=== PATIENT | female | born 1970 | race Caucasian/White ===

== ENCOUNTER 2016-05-30 22:32 | Emergency (ER) | payer OTHER ==
[~2016-05-30] VITALS: Ht 152.4 cm; Wt 75.0 kg
[~2016-05-30 22:32] MED LIST: BENHCT2012 PO; HYD25 PO; OLME1TAB25 PO
[2016-05-30 22:40] VITALS: Ht 152.4 cm; Wt 75.0 kg
[2016-05-30] MEDS ORDERED: hydrALAzine 20 MG INJ IV ONE (23:30)
[2016-05-31] LABS: ADD SCAN DIFF NO
--- NOTE | 2016-05-31 00:05 | RADRPT ---
PROCEDURE: XR Chest. CLINICAL INDICATION: Chest pain. TECHNIQUE: Portable AP upright view of the chest was obtained. COMPARISON: 02/01/2016 FINDINGS: The cardiomediastinal silhouette is within normal limits. The lungs are clear. There is no evidenc e for pleural effusion, pneumothorax or pulmonary vascular congestion. The osseous structures are i ntact with no evidence for acute abnormality. RPTAT:HJJR IMPRESSION: No evidence for acute intrathoracic pathology. Physician Lico Date Time Electronically viewed and signed by Mao Ballard Physician on 05/31/2016 00:05 JR/
[2016-05-31 00:15] LABS: ALBUMIN 4.4 g/dl (3.3-4.9); CHLORIDE 99 mmol/L (97-110); INR 0.87; POTASSIUM 3.7 mmol/L (3.5-5.1); PROTIME 11.8 Sec (12.2-14.2); PT RATIO 0.9; SODIUM 136 mmol/L (135-144)
[2016-05-31 00:18] LABS: ALANINE AMINOTRANSFERASE 33 IU/L (13-69); ALBUMIN/GLOBULIN RATIO 1.25; ALKALINE PHOSPHATASE 69 IU/L (42-121); ANION GAP 13 (8-16); ASPARTATE AMINO TRANSFERASE 26 IU/L (15-46); BASOPHIL # 0.1 10^3/ul (0.0-0.1); BASOPHILS % 0.9 % (0.0-2.0); BILIRUBIN,INDIRECT 0.2 mg/dl (0-1.1); BILIRUBIN,TOTAL 0.2 mg/dl (0.2-1.3); BLOOD UREA NITROGEN 16 mg/dl (7-20); CALCIUM 9.5 mg/dl (8.4-10.2); CARBON DIOXIDE 28 mmol/L (21-31); CREATININE 0.83 mg/dl (0.44-1.00); EOSINOPHILS # 0.3 10^3/ul (0.0-0.5); EOSINOPHILS % 2.9 % (0.0-7.0); GLUCOSE 93 mg/dl (70-220); HEMATOCRIT 39.9 % (37.0-47.0); LYMPHOCYTES # 3.6 10^3/ul (0.8-2.9); LYMPHOCYTES % 33.4 % (15.0-51.0); MEAN CORPUSCULAR HEMOGLOBIN 27.4 pg (29.0-33.0); MEAN CORPUSCULAR HGB CONC 32.6 g/dl (32.0-37.0); MEAN PLATELET VOLUME 11.6 fl (7.4-10.4); MONOCYTE # 0.9 10^3/ul (0.3-0.9); MONOCYTES % 8.7 % (0.0-11.0); NEUTROPHIL # 5.8 10^3/ul (1.6-7.5); NEUTROPHILS % 53.6 % (39.0-77.0); PLATELET COUNT 268 10^3/UL (140-415); RED BLOOD COUNT 4.75 10^6/ul (4.20-5.40); RED CELL DISTRIBUTION WIDTH 13.3 % (11.5-14.5); TOTAL PROTEIN 7.9 g/dl (6.1-8.1); WHITE BLOOD COUNT 10.7 10^3/ul (4.8-10.8)
[2016-05-31 00:26] LABS: B-TYPE NATRIURETIC PEPTIDE 80 PG/ML (0-125)
[2016-05-31 00:29] LABS: TROPONIN-I < 0.012 ng/ml (0.00-0.12)
--- NOTE | 2016-05-31 01:01 | ERD ---
ER Documentation Chief Complaint Date/Time DATE: 05/31/16 TIME: 01:00 Chief Complaint CP today that radiates to her back HPI This is a 45-year-old female who comes in with points of chest pain today that radiates to her back. Blood pressure was severely elevated. Denies any nausea denies vomiting denies any fevers or chills. Pain is mild to moderate in intensity and radiates to her left arm. Patient was seen in clinic today and noted to have a severely elevated blood pressure and sent to the ER for further evaluation and management. Patient states she has been under a lot of stress lately secondary to job-related issues. Says she has been feeling very " panicky " ROS All systems reviewed and are negative except as per history of present illness. Medications Home Meds Active Scripts Lorazepam* (Lorazepam*) 1 Mg Tablet, 1 MG PO Q8H Y for ANXIETY, #14 TAB Prov:OSWALD WALLACE 05/31/16 Hydrochlorothiazide* (Hydrochlorothiazide*) 25 Mg Tab, 25 MG PO DAILY, #30 TAB Prov:GEOVANY FIGUEROA MD 02/01/16 Olmesartan-Hydrochlorothiazide (Benicar HCT) 40-12.5 Mg Tablet, 1 TAB PO DAILY, #30 TAB 1 Refill Prov:JYOTHI LAWLER MD 01/30/15 Reported Medications Olmesartan-Hydrochlorothiazide (Benicar HCT) 20-12.5 Mg Tablet, 1 TAB PO DAILY, TAB 01/30/15 Allergies Allergies: Coded Allergies: No Known Allergy (Unverified , 01/30/15) PMhx/Soc Anesthesia Reaction: No Hx Neurological Disorder: No Hx Respiratory Disorders: No Hx Cardiac Disorders: Yes (HTN) Hx Psychiatric Problems: No Hx Miscellaneous Medical Probl: Yes (gastritis) Hx Alcohol Use: No Hx Substance Use: No Hx Tobacco Use: No Smoking Status: Never smoker Physical Exam Vitals Vital Signs Date Time Temp Pulse Resp B/P Pulse Ox O2 Delivery O2 Flow Rate FiO2 05/31/16 01:15 94 12 165/105 98 05/31/16 00:45 99 15 144/96 98 05/31/16 00:15 87 20 168/99 99 05/30/16 23:58 70 19 197/134 100 05/30/16 23:41 71 14 196/109 100 Room Air 05/30/16 22:40 98.6 87 20 223/110 98 Physical Exam Const: [] Head: Atraumatic Eyes: Normal Conjunctiva ENT: Normal External Ears, Nose and Mouth. Neck: Full range of motion..~ No meningismus. Resp: Clear to auscultation bilaterally Cardio: Regular rate and rhythm, no murmurs Abd: Soft, non tender, non distended. Normal bowel sounds Skin: No petechiae or rashes Back: No midline or flank tenderness Ext: No cyanosis, or edema Neur: Awake and alert Psych: Normal Mood and Affect Result Diagram: 05/30/16 2335 05/30/162334 Results 24 hrs Laboratory Tests Test 05/30/16 23:35 White Blood Count 10.710^3/ul Red Blood Count 4.7510^6/ul Hemoglobin 13.0g/dl Hematocrit 39.9% Mean Corpuscular Volume 84.0fl Mean Corpuscular Hemoglobin 27.4pg Mean Corpuscular Hemoglobin Concent 32.6g/dl Red Cell Distribution Width 13.3% Platelet Count 99837^3/UL Mean Platelet Volume 11.6fl Neutrophils % 53.6% Lymphocytes % 33.4% Monocytes % 8.7% Eosinophils % 2.9% Basophils % 0.9% Nucleated Red Blood Cells % 0.0/100WBC Neutrophils # 5.810^3/ul Lymphocytes # 3.610^3/ul Monocytes # 0.910^3/ul Eosinophils # 0.310^3/ul Basophils # 0.110^3/ul Nucleated Red Blood Cells # 0.010^3/ul Prothrombin Time 11.8Sec Prothrombin Time Ratio 0.9 INR International Normalized Ratio 0.87 Activated Partial Thromboplast Time 27.0Sec Sodium Level 136mmol/L Potassium Level 3.7mmol/L Chloride Level 99mmol/L Carbon Dioxide Level 28mmol/L Anion Gap 13 Blood Urea Nitrogen 16mg/dl Creatinine 0.83mg/dl Glucose Level 93mg/dl Calcium Level 9.5mg/dl Total Bilirubin 0.2mg/dl Direct Bilirubin 0.00mg/dl Indirect Bilirubin 0.2mg/dl Aspartate Amino Transf (AST/SGOT) 26IU/L Alanine Aminotransferase (ALT/SGPT) 33IU/L Alkaline Phosphatase 69IU/L Troponin I < 0.012ng/ml B-Type Natriuretic Peptide 80PG/ML Total Protein 7.9g/dl Albumin 4.4g/dl Globulin 3.50g/dl Albumin/Globulin Ratio 1.25 Current Medications Medications (Trade) Dose Ordered Sig/Doris Route PRN Reason Start Time Stop Time Status Last Admin Dose Admin Hydralazine HCl (Apresoline) 20 mg ONCE ONCE IV 05/30/16 23:30 05/30/16 23:31 DC 05/31/16 00:02 Lorazepam (Ativan) 1 mg ONCE ONCE PO 05/31/16 02:00 05/31/16 02:01 Procedures/MDM EKG: Rate/Rhythm: [Normal Sinus Rhythm] QRS, ST, T-waves: [No changes consistent w/ acute ischemia] Impression: [No evidence of ischemia or arrhythmia] Chest X-ray 1V Interpreted by me: Soft Tissue: No acute abnormalities Bones: No acute abnormalities Mediastinum/Cardiac Silhouette/Lungs: [No acute abnormalities] Patient's thoracic symptoms have stabilized while in the department and are stable for outpatient follow up. Exam and work up not consistent w/ ischemia, arrhythmia, PE or dissection. Critical Care: Time: 45 minutes Treatments/Evaluations: Close monitoring and treatment of unstable vital signs, cardiorespiratory, and neurologic status, while maintaining tight balance of fluid, respiratory, and cardiac interventions. Departure Diagnosis: Primary Impression: Chest pain Chest pain type: unspecified Qualified Code: R07.9 - Chest pain, unspecified type Additional Impressions: Hypertension Hypertension type: essential hypertension Qualified Code: I10 - Essential hypertension Anxiety attack Condition: Stable OSWALD WALLACE May 31, 2016 01:01
[2016-05-31 01:15] VITALS: BP 165/105; PULSE 94; RESP 12
[2016-05-31] MEDS ORDERED: LORA1TAB PO (01:40)
[2016-05-31] MEDS ORDERED: LORAZEPAM 1 MG TAB PO ONE (02:00)
== END 2016-05-31 02:25 | disposition home or self-care (01) ==
LOC: E/R 22:32
DX: R07.9 Chest pain, unspecified (principal); I10 Essential (primary) hypertension; F41.9 Anxiety disorder, unspecified; R06.00 Dyspnea, unspecified
CPT/HCPCS: 36415; 71010; 80053; 83880; 84484; 85025; 85610; 85730; 93005; 96374; J0360; Z7502; Z7610

== ENCOUNTER 2017-03-02 13:56 | Emergency (ER) | END 2017-03-02 18:42 | disposition home or self-care (01) ==

== ENCOUNTER 2018-07-05 21:39 | Emergency (ER) | payer MEDICAID, OTHER ==
[~2018-07-05] VITALS: Ht 152.4 cm; Wt 77.3 kg
[~2018-07-05 21:39] MED LIST changes: -HYD25 PO; +HYDR25TA6 PO; +LORA1TAB PO
[2018-07-05 21:44] VITALS: Ht 152.4 cm; Wt 77.3 kg
[2018-07-05] MEDS ORDERED: NICARDipine HCL 30 MG CAPSULE PO ONE (23:00)
[2018-07-05] MEDS ORDERED: BENHCT2012 PO (23:14)
--- NOTE | 2018-07-05 23:58 | ERD ---
ER Documentation Chief Complaint Chief Complaint CP x2 days w/ SOB, neck pain and htn HPI 48-year-old female presenting with complaints of hypertension. She has been out of medications for over 2 weeks. Today she was starting to feel a mild headache and pressure in her chest. Her symptoms were nonexertional. Currently she is denying any headache, shortness of breath, or chest pain. However she is very concerned about her blood pressure being so high. She lost her insurance and her primary doctor at the clinic did not refill her medications because she did not have insurance. She is usually on losartan but is unclear about the dose. Otherwise she is denying any other symptoms. ROS All systems reviewed and are negative except as per history of present illness. Medications Home Meds Active Scripts Olmesartan-Hydrochlorothiazide (Benicar HCT) 20-12.5 Mg Tablet, 1 TAB PO DAILY, #30 TAB Prov:ARIEL WRIGHT MD 07/05/18 Lorazepam* (Lorazepam*) 1 Mg Tablet, 1 MG PO Q8H PRN for ANXIETY, #14 TAB Prov:OSWALD WALLACE 05/31/16 Hydrochlorothiazide* (Hydrochlorothiazide*) 25 Mg Tab, 25 MG PO DAILY, #30 TAB Prov:GEOVANY FIGUEROA MD 02/01/16 Olmesartan-Hydrochlorothiazide (Benicar HCT) 40-12.5 Mg Tablet, 1 TAB PO DAILY, #30 TAB 1 Refill Prov:JYOTHI LAWLER MD 01/30/15 Allergies Allergies: Coded Allergies: No Known Allergy (Unverified , 01/30/15) PMhx/Soc Anesthesia Reaction: No Hx Neurological Disorder: No Hx Respiratory Disorders: No Hx Cardiac Disorders: Yes (HTN) Hx Psychiatric Problems: No Hx Miscellaneous Medical Probl: Yes (gastritis) Hx Alcohol Use: No Hx Substance Use: No Hx Tobacco Use: No Smoking Status: Never smoker FmHx Hypertension Physical Exam Vitals Vital Signs Date Temp Pulse Resp B/P (MAP) Pulse Ox O2 O2 Flow FiO2 Time Delivery Rate 07/05/18 74 16 172/114 100 Room Air 22:45 (133) 07/05/18 98.4 71 17 190/89 98 Room Air 22:07 (122) 07/05/18 98.4 81 17 251/119 98 21:44 (163) Physical Exam Const: No acute distress Head: Atraumatic Eyes: Normal Conjunctiva, PERRLA, EOMI ENT: Normal External Ears, Nose and Mouth. Neck: Full range of motion. No meningismus. Resp: Clear to auscultation bilaterally Cardio: Regular rate and rhythm, no murmurs. 2+ distal pulses Abd: Soft, non tender, non distended. Normal bowel sounds Skin: No petechiae or rashes Back: No midline or flank tenderness Ext: No cyanosis, or edema Neur: Awake and alert, oriented, normal speech, no facial asymmetry, moving all extremities Psych: Normal Mood and Affect Result Diagram: 07/05/18221107/05/182211 Results 24 hrs Laboratory Tests Test 07/05/18 22:12 White Blood Count 8.9 10^3/ul Red Blood Count 4.44 10^6/ul Hemoglobin 12.3 g/dl Hematocrit 37.1 % Mean Corpuscular Volume 83.6 fl Mean Corpuscular Hemoglobin 27.7 pg Mean Corpuscular Hemoglobin Concent 33.2 g/dl Red Cell Distribution Width 13.2 % Platelet Count 239 10^3/UL Mean Platelet Volume 11.3 fl Immature Granulocytes % 0.200 % Neutrophils % 52.8 % Lymphocytes % 35.3 % Monocytes % 7.9 % Eosinophils % 2.7 % Basophils % 1.1 % Nucleated Red Blood Cells % 0.0 /100WBC Immature Granulocytes # 0.020 10^3/ul Neutrophils # 4.7 10^3/ul Lymphocytes # 3.1 10^3/ul Monocytes # 0.7 10^3/ul Eosinophils # 0.2 10^3/ul Basophils # 0.1 10^3/ul Nucleated Red Blood Cells # 0.0 10^3/ul Sodium Level 140 mmol/L Potassium Level 3.5 mmol/L Chloride Level 106 mmol/L Carbon Dioxide Level 26 mmol/L Anion Gap 8 Blood Urea Nitrogen 13 mg/dl Creatinine 0.69 mg/dl Est Glomerular Filtrat Rate mL/min > 60 mL/min Glucose Level 109 mg/dl Calcium Level 9.1 mg/dl Troponin I < 0.012 ng/ml Current Medications Medications Dose Sig/Doris Start Time Status Last (Trade) Ordered Route PRN Stop Time Admin Dose Reason Admin Nicardipine 30 mg ONCE ONCE 07/05/18 DC 07/05/18 HCl PO 23:00 5/3/19 22:45 (Cardene) 23:01 Procedures/MDM EMERGENT LABS AND DIAGNOSTIC STUDIES: Lab Results above were reviewed and interpreted by me. CBC: no anemia or evidence of infection CMP: No evidence of clinically significant electrolyte abnormality, acidosis, renal failure, hypoglycemia, liver disease, or biliary obstruction Troponin within normal limits, not indicative of cardiac ischemia 12-lead EKG was interpreted by Betzaida Wright MD: Normal Sinus Rhythm Normal axis Normal intervals No acute ST or T wave changes suggestive of acute ischemia or STEMI. Radiology Results as interpreted by Radiology below were reviewed by Shekhar Wright MD: Chest x-ray shows no acute abnormalities Initial Nursing notes reviewed. Previous Medical Records requested via the Electronic Health Record. EMERGENCY DEPARTMENT COURSE / MEDICAL DECISION MAKING: Patient's blood pressure was elevated (>120/80) but appears stable without evidence of hypertensive emergency or urgency. The patient was counseled about the risks of hypertension and urged to pursue outpatient monitoring and therapy within a week with their primary care physician. Registration was able to help the patient get insurance again. I gave her a prescription for olmesartan hydrochlorothiazide which she has been on before. She can follow-up with her primary care doctor to adjust the dose or get any other new medications for her blood pressure. Departure Diagnosis: Primary Impression: Hypertensive urgency Condition: Stable Patient Instructions: Hypertension, Established, Out Of Control [facility] Usted se george hecho un examen mdico de control que le indica que no est en katrina condicin que requiera tratamiento urgente en el Departamento de Emergencia. Un estudio ms profundo y el tratamiento de vieira condicin pueden esperar sin ningn riesgo hasta que usted sea atendida/o en el consultorio de vieira mdico o katrina clnica. Es responsabilidad suya arreglar katrina carli para el seguimiento del sarah. MANEJO DE CONDICIONES NO URGENTES EN EL FUTURO 1) Si usted tiene un mdico de atencin primaria: Usted debera llamar a vieira mdico de atencin primaria antes de venir al departamento de emergencia. Despus de las horas de consultorio, vieira doctor o vieira asociado/a est disponible por telfono. El mdico o enfermero de poncho en el servicio telefnico puede asesorarle por jessica medio para atender el problema, o sarah contrario se puede programar katrina carli. 2) Si usted no tiene un mdico de atencin primaria: Llame al mdico o clnica de referencia que aparece abajo barbara las horas de consultorio para hacer katrina carli para que le vean. CLINICAS: [facility] [id number] [facility] [phone] [address] [facility] [phone] [facility] [phone] [place] [phone] [facility] [phone] ARIEL MENDOZA MD July 05, 2018 23:58
[2018-07-06 00:53] VITALS: BP 145/94; PULSE 75; RESP 16
== END 2018-07-06 00:52 | disposition home or self-care (01) ==
LOC: E/R 21:39
DX: I16.0 Hypertensive urgency (principal); I10 Essential (primary) hypertension
CPT/HCPCS: 36415; 71045; 80048; 84484; 85025; Z7502; Z7610; 93005